=== PATIENT | male | born 1980 | race African-American/Black ===

== ENCOUNTER 2020-09-17 11:10 | Inpatient (IN) | payer OTHER ==
[2020-09-13 12:59] VITALS: BMI 42.7
[2020-09-17] MEDS ORDERED: MIDAZOLAM HCL 2 MG/2 ML SINGLE DOSE VIAL ONE ×2 (13:54→15:18)
[2020-09-17] MEDS ORDERED: BUPIVACAINE HCL 50 ML ONE (13:54)
[2020-09-17] MEDS ORDERED: BUPIVACAINE HCL/PF 0.5% (5 MG/ML) 30 ML VIAL IJ ONE ×2 (13:54→15:18)
[2020-09-17] MEDS ORDERED: ONDANSETRON 4 MG/2 ML VIAL IVPUSH PRN ×2 (15:16→17:35)
[2020-09-17] MEDS ORDERED: LACTATED RINGERS SOLUTION 1,000 ML IV SCH (15:30)
[2020-09-17] MEDS ORDERED: fentaNYL CITRATE 250 MCG/5 ML VIAL ONE (15:35)
[2020-09-17] MEDS ORDERED: ROCURONIUM BROMIDE 50 MG/5 ML SYRINGE ONE (15:37)
[2020-09-17] MEDS ORDERED: PROPOFOL 20 ML ONE (15:48)
[2020-09-17] MEDS ORDERED: METOCLOPRAMIDE HCL INJECTION 10 MG/2 ML VIAL ONE (16:45)
[2020-09-17] MEDS ORDERED: FAMOTIDINE 20 MG/50 ML IVPB 20 MG/50 ML MG IVPB ONE (16:45)
[2020-09-17] MEDS ORDERED: BUPIVACAINE HCL/PF 0.25% (2.5MG/ML) 10 ML VIAL STI ONE (17:20)
[2020-09-17] MEDS ORDERED: HYDROmorphone HCL CARPU-JECT 1 MG/1 ML DISP.SYRIN IVPB PRN (17:38)
[2020-09-17] MEDS ORDERED: SODIUM CHLORIDE 1,000 ML IV SCH (17:45)
[2020-09-17] MEDS ORDERED: HYDROmorphone HCl 2 MG/ML VIAL IVPB PRN (17:49)
[2020-09-17] MEDS: METOCLOPRAMIDE HCL INJECTION 10 MG/2 ML VIAL IVPUSH SCH (18:18)
[2020-09-17] MEDS ORDERED: HYDROmorphone HCL 0.5 MG/0.5 ML SYRINGE ONE ×2 (18:25→18:39)
[2020-09-17] MEDS: HYDROmorphone HCL CARPU-JECT 1 MG/1 ML DISP.SYRIN IVPUSH PRN ×2 (18:27→18:41)
[2020-09-17] MEDS ORDERED: FAMOTIDINE 20 MG PREMIXED IVPB IVPB ONE (18:35)
[2020-09-17 19:20] LABS: ALBUMIN 4.1 g/dl (3.4-5.0); BILIRUBIN,TOTAL 0.5 mg/dl (0.2-1); CALCIUM 8.9 mg/dl (8.5-10); CREATININE 1.2 mg/dl (0.55-1.3); TOT PROT 7.9 g/dl (6.4-8.2)
[2020-09-17 19:29] LABS: HIV INTERPRETATION NEGATIVE (NEGATIVE)
[2020-09-17 19:51] LABS: HEMATOCRIT 43.5 % (35.4-49); HEMOGLOBIN 13.9 GM/dL (11.7-16.9); MCH 26.6 pg (25.7-33.7); MCHC 31.8 g/dl (32.0-35.9); MEAN CELL VOLUME 83.6 fl (80-96); MEAN PLT VOLUME 7.6 fl (7.5-11.1); PLATELET COUNT 368 K/MM3 (134-434); RBC 5.21 M/mm3 (4.00-5.60); RDW 14.4 % (11.9-15.9); WHITE BLOOD COUNT 10.5 K/mm3 (4.0-10.0)
[2020-09-17] MEDS: HYDROmorphone HCl 2 MG/ML VIAL IVPB PRN (20:53)
[2020-09-17] MEDS: FAMOTIDINE 20 MG/50 ML IVPB 20 MG/50 ML MG IVPB SCH (21:45)
[2020-09-18] MEDS: METOCLOPRAMIDE HCL INJECTION 10 MG/2 ML VIAL IVPUSH SCH ×3 (01:45→12:58)
[2020-09-18] MEDS: HYDROmorphone HCl 2 MG/ML VIAL IVPB PRN ×3 (03:11→12:58)
[2020-09-18 06:56] VITALS: TEMP 99.1
[2020-09-18 08:21] LABS: ALBUMIN 3.3 g/dl (3.4-5.0); BILIRUBIN,TOTAL 0.6 mg/dl (0.2-1); CALCIUM 8.1 mg/dl (8.5-10); CREATININE 1.1 mg/dl (0.55-1.3); POTASSIUM 3.9 mmol/L (3.5-5.1); TOT PROT 6.4 g/dl (6.4-8.2)
[2020-09-18 09:33] LABS: HEMATOCRIT 37.6 % (35.4-49); MCH 26.3 pg (25.7-33.7); MEAN CELL VOLUME 82.3 fl (80-96); MEAN PLT VOLUME 7.3 fl (7.5-11.1); PLATELET COUNT 323 K/MM3 (134-434); RBC 4.57 M/mm3 (4.00-5.60); RDW 14.4 % (11.9-15.9); WHITE BLOOD COUNT 10.4 K/mm3 (4.0-10.0)
[2020-09-18] MEDS: FAMOTIDINE 20 MG/50 ML IVPB 20 MG/50 ML MG IVPB SCH (09:33)
[2020-09-18] MEDS ORDERED: ACETAMINOPHEN 325 MG TABLET (FP) PO PRN (13:18)
[2020-09-18] MEDS ORDERED: oxyCODONE HCL 5 MG TABLET PO PRN (13:18)
[2020-09-18] MEDS ORDERED: SODIUM CHLORIDE 1,000 ML IV SCH (13:30)
[2020-09-18 14:34] VITALS: BP 129/71; PULSE 73
== END 2020-09-18 15:33 | disposition home or self-care (01) | DRG 403 ==
LOC: FM/S 11:10
PROVIDERS: ADMIT Surgery; ATTEND Surgery
PROC: 0DNW4ZZ Release Peritoneum, Percutaneous Endoscopic Approach (ICD-10-PCS; 2020-09-17)
PROC: 0DB64Z3 Excision of Stomach, Percutaneous Endoscopic Approach, Vertical (ICD-10-PCS; principal; 2020-09-17 16:11)
DX: E66.01 Morbid (severe) obesity due to excess calories (principal); Z68.41 Body mass index [BMI] 40.0-44.9, adult; G47.33 Obstructive sleep apnea (adult) (pediatric); K66.0 Peritoneal adhesions (postprocedural) (postinfection); K29.50 Unspecified chronic gastritis without bleeding
CPT/HCPCS: 36415; 74240-TC-FY; 80053; 85027; 86803; 86850; 86900; 86901; 87389; 88305-TC; 94760; Q9967